=== PATIENT | male | born 1980 | race Caucasian/White ===

== ENCOUNTER 2021-12-09 19:09 | Emergency (ER) | payer SELFPAY ==
[2021-12-09 20:00] LABS: #Basophils 0.1 thou/uL (0.0-0.2); #Eosinphils 0.1 thou/uL (0.0-0.7); #Monocytes 0.8 thou/uL (0.11-0.59); #Neutrophils 6.3 thou/uL (1.40-6.50); %Basophils 0.8 % (0.0-1.0); %Eosinophils 1.2 % (0.0-10.0); %Monocytes 8.8 % (0.0-10.0); %Neutrophils 68.2 % (42.0-75.0); Hemoglobin 15.4 g/dL (14.0-18.0); Mean Corpuscular HGB CONC 33.3 g/dL (32.0-36.0); Mean Corpuscular Volume 90.3 fL (78.0-98.0); Mean Platelet Volume 6.1 fL (7.4-10.4); Platelet Count 235 thou/uL (130-400); RBC Distribution Width 11.9 % (11.5-14.5); Red Blood Cell (RBC) Count 5.13 mill/uL (4.70-6.10); White Blood Cell (WBC) Count 9.3 thou/uL (4.8-10.8)
[2021-12-09 20:23] LABS: ALT (SGPT) 80 U/L (8-55); AST (SGOT) 34 U/L (5-34); Albumin 4.1 g/dL (3.5-5.0); Alkaline Phosphatase 108 U/L (40-110); Anion Gap 14 mmol/L (10-20); BUN (Urea Nitrogen) 13 mg/dL (8.9-20.6); Bilirubin, Total 0.5 mg/dL (0.2-1.2); Calc. Creatinine Clearance 0 mL/min (70-130); Calcium 9.2 mg/dL (7.8-10.44); Carbon Dioxide 24 mmol/L (22-29); Chloride 105 mmol/L (98-107); Globulin 3.1 g/dL (2.4-3.5); Glucose 110 mg/dL (70-105); Lipase 27 U/L (8-78); Potassium 3.8 mmol/L (3.5-5.1); Protein, Total 7.2 g/dL (6.0-8.3); Sodium 139 mmol/L (136-145)
[2021-12-09] MEDS ORDERED: Ketorolac Tromethamine 30 MG/ML VIAL ONE (20:27)
== END 2021-12-09 20:55 | disposition home or self-care (01) ==
LOC: ERS 19:09
DX: R07.2 Precordial pain (principal)
CPT/HCPCS: 36415; 71045; 80053; 83690; 84484; 85025; 93005; 96374; J1885